=== PATIENT | male | born 1995 | race Two or more races ===

== ENCOUNTER 2017-06-23 20:57 | Emergency (ER) | payer OTHER ==
[2017-06-23] MEDS ORDERED: ACETAMINOPHEN 500 MG TAB ONE (21:18)
--- NOTE | 2017-06-23 21:18 | EDPHY ---
H & P Stated Complaint: 102.5 fever and dizzy Time Seen by Provider: 06/23/17 21:17 HPI/ROS: HPI: This is a 21-year-old male presents with Chief Complaint: 102.5 fever and dizzy Location: Body Quality: Fever Duration: Since last night Signs and Symptoms:+ sore throat, + swollen glands, no headache, no neck stiffness, no chest pain, no cough, + body aches, + fatigue, no cough, no shortness of breath, no chest pain Timing: Sudden and constant Severity: Moderate Context: Patient is the local [employer] student that reports sudden onset of fever last night as high as 102 orally F accompanied by fatigue, body aches, sore throat, swollen glands. He feels dizzy. He has had decreased appetite but has been trying to sip on liquids. No history of lung disease. Did not receive influenza vaccine this year. Took ibuprofen 400 mg 2 hr prior to arrival. Modifying Factors: Ibuprofen Comment: ROS: see HPI Constitutional: No fever, no chills, no weight loss Eyes: No blurred vision Respiratory: No shortness of breath, no cough Cardiovascular: No chest pain Gastrointestinal: No nausea, no vomiting, no diarrhea Genitourinary: No dysuria Extremities: No myalgias Neurologic: No weakness, no numbness Skin: No rashes Hematologic: No bruising, no bleeding MEDICAL/SURGICAL/SOCIAL HISTORY: Medical history: wrist fx, concussion, hypoglycemia Surgical history: Denies Social history: Local college student CONSTITUTIONAL: Ill-appearing but nontoxic young adult white male, polite and cooperative, awake and alert, no obvious distress HEENT: Atraumatic and normocephalic, PERRL, EOMI. Tympanic membranes clear. Oropharynx clear, tonsils 1+ mild erythema, uvula midline, no exudate and moist pink mucosa. Airway patent. Spotty anterior cervical lymphadenopathy. No meningismus. Cardiovascular: Normal S1/S2, tachycardia, regular rhythm, without murmur rub or gallop. PULMONARY/CHEST: Symmetrical and nontender. Clear to auscultation bilaterally. Good air movement. No accessory muscle usage. ABDOMEN: Soft, nondistended, nontender, no rebound, no guarding, no peritoneal signs, no masses or organomegaly. No CVAT. EXTREMITIES: 2/2 pulses, strength 5/5, no deformities, no clubbing, no cyanosis or edema. NEUROLOGICAL: no focal neuro deficits. GCS 15. SKIN: Warm and dry, no erythema. no rash. Good capillary refill. Source: Patient Exam Limitations: No limitations - Personal History Current Tetanus/Diphtheria Vaccine: Yes Tetanus Vaccine Date: <10 years - Medical/Surgical History Hx Asthma: No Hx Chronic Respiratory Disease: No Hx Diabetes: No Hx Cardiac Disease: No Hx Renal Disease: No Hx Cirrhosis: No Hx Alcoholism: No Hx HIV/AIDS: No Hx Splenectomy or Spleen Trauma: No Other PMH: wrist fx, concussion. hypoglycemia - Social History Smoking Status: Never smoked Constitutional: Initial Vital Signs Temperature (C) 37.6 C 06/23/17 21:00 Heart Rate 132 H 06/23/17 21:00 Respiratory Rate 18 06/23/17 21:00 Blood Pressure 135/77 H 06/23/17 21:00 O2 Sat (%) 97 06/23/17 21:00 O2 Delivery Mode Room Air Allergies/Adverse Reactions: No Known Allergies Allergy (Verified 06/23/17 21:03) Home Medications: Medication Instructions Recorded Adderall 10 mg Tablet 06/23/17 Medical Decision Making ED Course/Re-evaluation: Strep test, influenza test, oral medications ordered Patient has no signs of tonsillar abscess/airway compromise/meningitis Tachycardic upon arrival. Given Tylenol and ibuprofen. Strep and Influenza negative Vital signs improved at discharge. Patient drinking copious amount of fluids without difficulty. Appears to be influenza like illness. Advised supportive care. School excuse provided. Differential Diagnosis: Adult fever including but not limited to viral syndromes including influenza, strep pharyngitis, meningitis. - Data Points Laboratory Results: 06/23/17 06/23/17 06/23/17 Unknown 21:24 20:20 Nasal Influenza A PCR NEGATIVE FOR FLU A (NEGATIVE) Nasal Influenza B PCR NEGATIVE FOR FLU B (NEGATIVE) Group A Strep Screen NEGATIVE (NEGATIVE) Group A Strep DNA Pending Medications Given: Discontinued Medications Acetaminophen (Tylenol) 1,000 mg PO EDNOW ONE Stop: 06/23/17 21:34 Last Admin: 06/23/17 21:41 Dose: 1,000 mg Ibuprofen (Motrin) 600 mg PO EDNOW ONE Stop: 06/23/17 21:34 Last Admin: 06/23/17 21:41 Dose: 600 mg Departure - Departure Disposition: Home, Routine, Self-Care Clinical Impression: Influenza-like illness Condition: Good Instructions: Influenza (ED) Additional Instructions: Drink a minimum 8-10 glasses of water daily including electrolyte replacement drinks like Gatorade or Powerade. Rest as much as possible over the next several days. Take Tylenol 650 mg every 4 hours and/or Ibuprofen 600 mg every 8 hours with food as needed for pain. If not feeling better in [id number] days, please follow up with primary care provider. Referrals: JEAN CLAUDE JOHNSON [Primary Care Provider] - As per Instructions Stand Alone Forms: School Excuse
[2017-06-23] MEDS ORDERED: ACETAMINOPHEN 500 MG TAB PO ONE (21:33)
[2017-06-23] MEDS ORDERED: IBUPROFEN 600 MG TAB PO ONE (21:33)
[2017-06-23 22:05] VITALS: BP 122/70; PULSE 108; RESP 16; TEMP 99.1; O2SAT 95
== END 2017-06-23 22:11 | disposition home or self-care (01) ==
DX: J11.1 Influenza due to unidentified influenza virus with other respiratory manifestations (principal)